=== PATIENT | female | born 1980 | race Caucasian/White ===

== ENCOUNTER 2016-12-20 18:34 | Emergency (ER) | payer OTHER ==
[2016-12-20 18:49] VITALS: RESP 20; O2SAT 100
--- NOTE | 2016-12-20 19:22 | C.PDOC ---
History Of Present Illness 36 yr old female with A1, presents to the ER 6 weeks stating 5 days ago she started having brownish vaginal discharge and was seen by her PMD who said it could be normal for this stage of . However, patient states 2 days later the discharge changed to red and the next day she started having cramping. Patient states today she started to pass clots and what looked like tissue. Patient denies fever, chills, chest pain, SOB, nausea, vomiting, diarrhea, dysuria, incontinence, weakness or numbness. Patient has had multiple BETA HCG in the past. 12/09 - 599. 12/11 - 680. 12/14 - 1011. Time Seen by Provider: 12/20/16 19:05 Chief Complaint (Nursing): Female Genitourinary History Per: Patient History/Exam Limitations: no limitations Onset/Duration Of Symptoms: Days (5) Current Symptoms Are (Timing): Still Present Past Medical History Reviewed: Historical Data, Nursing Documentation, Vital Signs Vital Signs: Last Vital Signs Temp 98.3 F 12/20/16 18:47 Pulse 87 12/20/16 18:47 Resp 20 12/20/16 18:47 BP 109/76 12/20/16 18:47 Pulse Ox 100 12/20/16 21:54 Family History: States: No Known Family Hx - Social History Hx Alcohol Use: No Hx Substance Use: No - Immunization History Hx Tetanus Toxoid Vaccination: Yes Hx Influenza Vaccination: No Hx Pneumococcal Vaccination: No Review Of Systems Except As Marked, All Systems Reviewed And Found Negative. Constitutional: Negative for: Fever, Chills Cardiovascular: Negative for: Chest Pain Respiratory: Negative for: Shortness of Breath Gastrointestinal: Positive for: Abdominal Pain (Cramping ). Negative for: Nausea, Vomiting, Diarrhea Genitourinary: Positive for: Vaginal Discharge. Negative for: Dysuria, Incontinence Neurological: Negative for: Weakness, Numbness Physical Exam - Physical Exam Appears: Well, Non-toxic, No Acute Distress Skin: Warm, Dry, No Rash Head: Atraumatic, Normacephalic Oral Mucosa: Moist Chest: Symmetrical, No Tenderness Cardiovascular: Rhythm Regular, No Murmur Respiratory: Normal Breath Sounds, No Rales, No Rhonchi, No Stridor, No Wheezing Gastrointestinal/Abdominal: Soft, Tenderness (Mild superpubic tenderness ), No Guarding, No Rebound Pelvic: Vaginal Bleeding, No Enlarged Uterus, No Tender Uterus, Other (Has a pad on with blood. Blood in the vault. No tissue. No clots. Cervix admits finger tip. Uterus is small and non tender. ) Extremity: Normal ROM, No Swelling Neurological/Psych: Oriented x3, Normal Speech, Normal Motor ED Course And Treatment - Laboratory Results Result Diagrams: 12/20/16 19:31 Lab Interpretation: No Acute Changes Interpretation Of Abnormal: BHCG 1027 O2 Sat by Pulse Oximetry: 100 Pulse Ox Interpretation: Normal - Other Rad US Preg/ transvaginal X-Ray: Viewed By Me, Read By Radiologist Interpretation: EXAM: US , Transvaginal. CLINICAL HISTORY: 36 years old, female; Signs and symptoms; Lmp or gestational age (in weeks): 11-07-2016; Other: Vag bleed; ; Additional info: Vaginal bleeding. TECHNIQUE: Real-time transvaginal obstetrical ultrasound of the maternal pelvis and a first trimester . with image documentation. Transvaginal imaging was used for better evaluation of the fetus and. adnexa. COMPARISON: No relevant prior studies available. FINDINGS: Gestation: Placenta/amniotic fluid: Cannot be adequately evaluated due to the early gestational age. Uterus/cervix : Unremarkable. No myometrial mass. Ovaries: Unremarkable. No mass. Free fluid : No free fluid. IMPRESSION: Normal first trimester ultrasound exam. EXAM: US First Trimester, Transabdominal. CLINICAL HISTORY: 36 years old, female; Signs and symptoms; Lmp or gestational age (in weeks): 11-07-2016; Other : Vag bleed; ; Additional info: Vaginal bleeding. TECHNIQUE: Real- time transabdominal obstetrical ultrasound of the maternal pelvis and a first trimester. with image documentation. EXAM DATE/TIME: Exam ordered 7:18 PM. COMPARISON: No relevant prior studies available. FINDINGS: Gestation: There is a dumbbell shaped fluid collection noted within the uterus measuring 0.9 x 0.3 x. 0.6 cm for a mean diameter of 0.6 cm. The borders are somewhat angular. There is a pole with a. crown-rump length measurement of 0.2 cm for menstrual age of 5 weeks and 5 days. Cardiac activity. is noted a rate of 69 beats per minute. A yolk sac is present. The cervix was closed at the time the. examination. Placenta/amniotic fluid: Cannot be adequately evaluated due to the early gestational age. Uterus/cervix : On the transabdominal portion examination the uterus measures 8.8 x 5.3 x 6.6 cm. On the transabdominal portion of the examination the endometrial stripe measures 1.8 cm. A small. amount of fluid was noted within the endocervical canal at the time of the study. The cervix was. closed. It measured 3.3 cm in length. Ovaries: The left ovary measures 2.8 x 2.1 x 2.4 cm. Subcentimeter follicles are present within the. left ovary. Blood flow is demonstrated to the left ovary. The right ovary measures 2.2 x 1.7 x 1.9 cm. A subcentimeter follicle is present in the right ovary. Blood flow is demonstrated in the right ovary. No. mass. Free fluid: No free fluid. IMPRESSION: 1. Single live intrauterine with an estimated menstrual age of 5 weeks and 5 days. The. gestational sac is irregular in shape and the heart rate is in the bradycardia range. These. findings are concerning and followup is recommended. Progress Note: Patient is blood type A+. Reevaluation Time: 21:55 Reassessment Condition: Unchanged Medical Decision Making Medical Decision Making: PLAN: * US - Transvaginal * BETA HCG * CBC Disposition - Disposition Referrals: Florencia Hagen MD [Staff Provider] - Disposition: HOME/ ROUTINE Disposition Time: 21:55 Condition: STABLE Instructions: Threatened Miscarriage (ED) - Clinical Impression Clinical Impression: Inevitable - Scribe Statement The provider has reviewed the documentation as recorded by the Jimibamandeep Perla Provider Attestation: All medical record entries made by the Jimibamandeep were at my direction and personally dictated by me. I have reviewed the chart and agree that the record accurately reflects my personal performance of the history, physical exam, medical decision making, and the department course for this patient. I have also personally directed, reviewed, and agree with the discharge instructions and disposition.
[2016-12-20 19:38] LABS: BASO # 0.1 K/uL (0.0-0.2); BASO % 0.7 % (0.0-2.0); EOS # 0.2 K/uL (0.0-0.7); HEMATOCRIT 36.8 % (34.0-47.0); LYMPH # 2.8 K/uL (1.0-4.3); LYMPH % 30.8 % (20.0-40.0); MEAN CELL VOLUME 89.8 fL (81.0-99.0); MEAN CORPUSCULAR HEMOGLOBIN 30.4 pg (27.0-31.0); MEAN CORPUSCULAR HGB CONC 33.9 g/dL (33.0-37.0); MEAN PLATELET VOLUME 9.8 fL (7.2-11.7); MONO # 0.6 K/uL (0.0-0.8); MONO % 6.5 % (0.0-10.0); RED CELL DISTRIBUTION WIDTH 13.3 % (11.5-14.5)
[2016-12-20 22:02] VITALS: BP 100/67; PULSE 80; TEMP 98.2
--- NOTE | 2016-12-21 10:48 | US ---
Indication: Vaginal bleeding Comparison: Pelvic ultrasound performed 11/16/13, no recent study available for comparison. Technique: Real-time transabdominal pelvic ultrasound was performed. In addition a transvaginal pelvic ultrasound was necessary to better depict pelvic anatomy Findings: The uterus measures approximately 8.9 x 5.9 x 6.6 cm. Retroverted. Cervix length measures approximately 3.3 cm. There is a single intrauterine fetus present. An irregularly-shaped gestational sac measures 0.6 cm, too small for gestational age calculation. The crown-rump length measures 0.2 cm and is compatible with a gestational age of 5 weeks 5 days. There is heart motion which measured 68.1 BPM. The right ovary measures 3.8 x 2.0 x 3.0 cm. Probable right corpus luteal cyst measuring approximately 2.2 x 1.7 x 1.9 cm. The left ovary measures 2.8 x 2.1 x 2.4 cm. Flow was demonstrated to both ovaries. Impression: Irregularly shaped gestational sac, too small for gestational age calculation. age calculation by crown-rump length consist Pap double with 5 weeks 5 days gestation. Bradycardia. The above findings are concerning and close interval follow-up as well as [employer] consultation is recommended. Preliminary impression was provided by virtual radiologic.
== END 2016-12-20 22:06 | disposition home or self-care (01) ==
LOC: C.ER 18:34
DX: O03.9 Complete or unspecified spontaneous abortion without complication (principal)